=== PATIENT | female | born 1965 | race Caucasian/White ===

== ENCOUNTER 2021-08-13 20:40 | Emergency (ER) | payer OTHER, SELFPAY ==
[2021-08-13] VITALS (15 sets, daily range): BP systolic 130–152; BP diastolic 69–98; PULSE 80–88; RESP 18; TEMP 36.7; O2SAT 96–100
--- NOTE | ~2021-08-13 | CT_ITS ---
EXAMINATION: CT brain wo con DATE: 08/13/2021 22:35 INDICATION: Syncope TECHNIQUE: Computed tomography (CT) of the head was performed without intravenous contrast. Sagittal and coronal reconstructions were performed. The mA was adjusted according to patient size. Iterative reconstruction technique was employed. The dose-length product was 681.00 mGy-cm. COMPARISON: head CT dated 10/02/2009 FINDINGS: No acute intracranial hemorrhage, acute infarction or abnormal extra axial fluid collection. Ventricl es are normal and symmetric. No mass/mass effect. The orbits, paranasal sinuses and mastoid air cells are normal. IMPRESSION: 1. Normal brain. Reviewed, dictated and finalized at location A. IMPRESSION: 1. Normal brain.
[2021-08-13] MEDS: SODIUM CHLORIDE 0.9% IV 1,000 ML 999 ML IV CONT (21:47)
--- NOTE | 2021-08-13 22:04 | ECG_ITS ---
Measurements Intervals [place] Rate: 71 P: 20 WV: 151 QRS: -49 QRSD: 102 T: 0 QT: 371 QTc: 403 Interpretive Statements SINUS RHYTHM LEFT ANTERIOR FASCICULAR BLOCK BORDERLINE T WAVE ABNORMALITY- DIFFUSE LEADS ABNORMAL ECG Electronically Signed On 08-14-2021 6:26:47 CDT by Akash Cortes D.O.
--- NOTE | 2021-08-13 22:11 | ED.ABDPAIN ---
HPI - Abdominal Pain General Chief Complaint: Abdominal Pain Stated Complaint: n/v/d - weakness-unable to sit in a chair Time Seen by Provider: 08/13/21 21:11 Source: patient Mode of arrival: ambulatory Limitations: no limitations History of Present Illness HPI narrative: Patient is a 56-year-old female complaining of nausea accompanied by diarrhea, constant x2 hours. Patient states that she has had nonstop diarrhea for 2 hours causing her to feel very weak and passed out. Patient describes her diarrhea as loose watery, nonbloody. Patient denies any chest pain, shortness of breath, abdominal pain, vomiting, fever or chills. Related Data Home Medications Medication Instructions Recorded Confirmed bupropion HCl 300 mg 24 hr tablet, 300 mg PO QAM 07/18/21 07/18/21 extended release clonazepam 0.5 mg tablet 0.5 mg PO DAILY 07/18/21 07/18/21 esomeprazole magnesium 40 mg 40 mg PO .2-3 X's weekly cap 07/18/21 07/18/21 capsule,delayed release quetiapine 100 mg tablet 100 mg PO QHS 07/18/21 07/18/21 Allergies Allergy/AdvReac Type Severity Reaction Status Date / Time No Known Allergies Allergy Mild Verified 07/18/21 10:56 Review of Systems Review of Systems: All systems reviewed & are unremarkable except as noted in HPI and below Constitutional: Constitutional: Denies body ache(s), Denies chills, Denies excessive sweating, Denies fatigue, Denies fever(s), Denies headache(s), Denies lethargy, Denies malaise, Denies weakness and Denies weight loss Eyes: Eyes: Denies blurry vision, Denies change in vision and Denies loss of vision ENT: Denies dizziness, Denies ear discharge, Denies headache(s), Denies lip swelling, Denies epistaxis, Denies nasal congestion, Denies neck pain, Denies throat swelling and Denies tongue swelling Cardiovascular: Cardiovascular: Denies chest pain, Denies chest pain at rest, Denies chest pain with activity, Denies diaphoresis, Denies rapid heart rate, Denies edema, Denies irregular heart rhythm, Denies lightheadedness, Denies palpitations, Denies dyspnea and Denies dyspnea on exertion Respiratory: Respiratory: Denies chest congestion, Denies cough, Denies hemoptysis, Denies dyspnea and Denies dyspnea on exertion Gastrointestinal: Gastrointestinal: Denies abdominal pain, Denies melena, Denies hematochezia, Denies vomiting and Denies hematemesis Musculoskeletal: Musculoskeletal: Denies abnormal gait, Denies deformity, Denies joint swelling, Denies limited range of motion, Denies neck pain and Denies numbness Neurologic: Denies Abnormal speech present, Denies abnormal gait, Denies confusion, Denies dizziness, Denies headache(s), Denies focal weakness, Denies loss of vision, Denies numbness, Denies Other visual disturbances, Denies Sensory deficit (Neuro) and Denies weakness Psychiatric: Psychiatric: Denies confusion, Denies depression, Denies auditory hallucinations, Denies homicidal ideation and Denies suicidal ideation Endocrine: Endocrine: Denies cold intolerance, Denies excessive sweating, Denies fatigue, Denies heat intolerance and Denies palpitations Hematologic/Lymphatic: Hematologic/Lymphatic: Denies easy bleeding and Denies easy bruising Allergic/Immunologic: Allergic/Immunologic: Denies lip swelling, Denies throat swelling and Denies tongue swelling PMFSH Past Medical History Medical History Anxiety Anxiety and depression Depression Dyslipidemia Family History Family History Mother Family history of malignant neoplasm of urinary bladder Hypertension Father Cerebrovascular accident Other Diabetes mellitus Family history of glaucoma Family history of hypercholesterolemia Social History Social History Smoking status: Former smoker Second hand tobacco smoke exposure: No Smoking end date:
[2021-08-13 22:17] LABS: Basophils Percent Auto 0.4 % (0.2-1.2); Eosinophils Percent Auto 0.6 % (0-4.4); Hematocrit 43.2 % (37.0-47.0); Hemoglobin 14.2 g/dL (12.0-15.0); Immature Granulocyte Absolute 0.01 K/mm3 (0.00-0.031); Immature Granulocyte Percent A 0.1 % (0-0.5); Lymphocytes Absolute Auto 1.41 K/mm3 (0.9-3.2); Lymphocytes Percent Auto 20.8 % (18.3-44.2); Mean Corpuscular HGB Conc 32.9 g/dl (32-36); Mean Corpuscular Hemoglobin 32.4 pg (26-34); Mean Corpuscular Volume 98.6 fl (80-100); Mean Platelet Volume 9.8 fl (7.4-10.4); Monocytes Absolute Auto 0.4 K/mm3 (0.1-0.6); Monocytes Percent Auto 5.3 % (2.6-8.5); Neutrophils Absolute Auto 4.9 K/mm3 (1.3-6.7); Neutrophils Percent Auto 72.8 % (45.5-73.1); Platelet Count Result 238 k/mm3 (150-375); Red Blood Count 4.38 M/mm3 (4.2-5.4); Red Cell Distribution Width 12.7 % (11.5-14.5); White Blood Count 6.8 K/mm3 (4.5-10.0)
[2021-08-13 22:29] LABS: Alanine Aminotransferase 110 U/L (4-35); Albumin Level 4.4 g/dL (3.5-5.1); Alkaline Phosphatase 82 U/L (38-126); Anion Gap 11 mmol/L (8-16); Aspartate Amino Transferase 153 U/L (14-36); Bilirubin,Total 0.8 mg/dL (0.2-1.3); Blood Urea Nitrogen 11 mg/dL (7-17); Calcium 9.1 mg/dL (8.4-10.2); Carbon Dioxide 22 mmol/L (22-30); Chloride 107 mmol/L (98-107); Estimated CRCL calculation 74 ml/min; Estimated Glomerular Filt Rate > 60; Glucose 129 mg/dL (65-110); Lipase 124 U/L (23-300); Potassium 4.2 mmol/L (3.4-5.0); Sodium 140 mmol/L (137-145)
[2021-08-13 22:39] LABS: Troponin I < 0.012 ng/mL (0.000-0.034)
[2021-08-14 01:29] VITALS: BP 113/72; PULSE 77; RESP 18; O2SAT 100
== END 2021-08-14 01:30 | disposition home or self-care (01) ==
PROVIDERS: Emergency Provider Emergency Medicine; PCP Family Medicine
DX: K52.9 Noninfective gastroenteritis and colitis, unspecified (principal); R55 Syncope and collapse; F41.9 Anxiety disorder, unspecified; F32.9 Major depressive disorder, single episode, unspecified; E78.5 Hyperlipidemia, unspecified; Z87.891 Personal history of nicotine dependence; I44.4 Left anterior fascicular block
CPT/HCPCS: 36415; 70450; 80053; 83690; 84484; 85025; 93005; 96360; 99284; J7030

== ENCOUNTER 2023-10-13 08:24 | Emergency (ER) | payer OTHER, SELFPAY ==
--- NOTE | ~2023-10-13 | XR_ITS ---
EXAMINATION: XR hand LT min 3V, XR wrist LT min 3V DATE: 10/13/2023 08:52 INDICATION: Lateral sided left hand and wrist pain post fall TECHNIQUE: 1. Posteroanterior, ulnar deviation, oblique, and lateral views of the left wrist were obtained. 2. Dorsal palmar, oblique and lateral views of the left hand were obtained. COMPARISON: None. FINDINGS: Oblique extra articular fracture extending from the proximal ulnar to the distal radial side of the d iaphysis of the left fifth proximal phalanx. 1.5 mm ulnar displacement and 2 mm proximal migration. N o other fractures identified. Otherwise normal alignment at the left hand and wrist. 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 IMPRESSION: 1. Minimally displaced extra-articular diaphyseal fracture of the left fifth proximal phalanx. Reviewed, dictated and finalized at location A. S LEAD IMPRESSION: 1. Minimally displaced extra-articular diaphyseal fracture of the left fifth pr oximal phalanx.
[2023-10-13 08:30] VITALS: BP 124/79; PULSE 90; RESP 16; TEMP 36.6; O2SAT 96
--- NOTE | 2023-10-13 08:53 | ED.GENADULT ---
HPI - General Adult General Chief complaint: Extremity Injury, Upper Stated complaint: left finger injury Time Seen by Provider: 10/13/23 08:33 History of Present Illness HPI narrative: 58-year-old female presents emergency department for evaluation after having a ground level fall. Patient reports she tripped on her small dog and injured her right knee and her left hand. Patient denies any significant injury or pain to the left knee and pain weight-bearing. Patient does pain of the left hand optimized to the 5th finger. Patient denies Striking her head denies any loss of consciousness. Related Data Home Medications Medication Instructions Recorded Confirmed quetiapine 50 mg tablet 100 mg PO QHS 09/01/21 08/30/23 zaleplon 10 mg capsule 10 mg PO QHS 09/01/21 08/30/23 divalproex 125 mg tablet,delayed 125 mg PO Q8H 08/30/23 08/30/23 release sertraline 100 mg tablet 100 mg PO DAILY 08/30/23 08/30/23 Allergies Allergy/AdvReac Type Severity Reaction Status Date / Time No Known Allergies Allergy Mild Verified 08/30/23 15:02 Review of Systems Review of Systems: All systems reviewed & are unremarkable except as noted in HPI and below PMFSH Past Medical History Medical History Anxiety and depression Dyslipidemia Family History Family History Mother Family history of malignant neoplasm of urinary bladder Hypertension Father Cerebrovascular accident Other Diabetes mellitus Family history of glaucoma Family history of hypercholesterolemia Social History Social History (Updated 08/30/23 @ 15:10 by Es Perez MA) Smoking status: Former smoker Second hand tobacco smoke exposure: No Smoking end date: 11/22/04 Alcohol intake: never Substance use: never Substance use type: does not use Lack of Transportation: No Lack of Food: Sometimes True Current Housing: I Have Housing Concerned About Future Housing: No Difficulty Paying Gas/Electric Bills: YES Difficulty Paying for Meds: No Currently Unemployed: No Education: Master's Degree or Higher Living arrangements: alone Occupation/Education: unemployed Gender identity (if verbalized by the patient): Female Agree to blood products: Yes Exam Narrative: APPEARANCE: Well appearing, no pain, no distress, well-nourished. HEAD: normocephalic, atraumatic. EYES: PERRLA/EOMI, conjunctivae clear. NOSE: Normal no drainage EARS:TMS clear with good light reflex. THROAT: Pharynx clear, no exudate. NECK: Supple. No adenopathy, no masses. RESPIRATORY: Airway patent, respirations nonlabored. Clear to auscultation bilaterally, no rales, rhonchi, wheezing. CARDIOVASCULAR: Regular rate and rhythm without murmurs rubs or gallops. ABDOMINAL: Soft, nontender, nondistended, normal bowel sounds MUSCULOSKELETAL: Tenderness at left finger, normal cap refill NEURO: Alert. Cranial nerves II through XII intact. Good gait. Good coordination SKIN: Warm, dry. Normal Color PSYCHIATRIC: Normal affect/mood. Course Vital Signs Vital signs: Vital Signs Temperature 97.9 F 10/13/23 08:30 Pulse Rate 90 10/13/23 08:30 Respiratory Rate 16 10/13/23 08:30 Blood Pressure 124/79 10/13/23 08:30 Pulse Oximetry 96 10/13/23 08:30 Temperature 97.9 F 10/13/23 08:30 Pulse Rate 90 10/13/23 08:30 Respiratory Rate 16 10/13/23 08:30 Blood Pressure 124/79 10/13/23 08:30 Pulse Oximetry 96 10/13/23 08:30 Medical Decision Making Differential Diagnosis Differential Diagnosis: head injury, head injury, knee injury Vital Signs Vital Signs: Vital Signs Temperature 97.9 F 10/13/23 08:30 Pulse Rate 90 10/13/23 08:30 Respiratory Rate 16 10/13/23 08:30 Blood Pressure 124/79 10/13/23 08:30 Pulse Oximetry 96 10/13/23 08:30 Temperature 97.9 F 09/23
[2023-10-13] MEDS: HYDROcodone/acetaminophen (*CRX) 5-325 MG TABLET 1 TAB PO (09:23)
== END 2023-10-13 09:25 | disposition home or self-care (01) ==
LOC: ANHED 09:06
PROVIDERS: Emergency Provider Emergency Medicine; PCP Family Medicine
DX: S62.617A Displaced fracture of proximal phalanx of left little finger, initial encounter for closed fracture (principal); E78.5 Hyperlipidemia, unspecified; F41.9 Anxiety disorder, unspecified; F32.A Depression, unspecified; Z87.891 Personal history of nicotine dependence; W01.0XXA Fall on same level from slipping, tripping and stumbling without subsequent striking against object, initial encounter
CPT/HCPCS: 29130; 73110; 73130; 99284; A9270

== ENCOUNTER 2023-10-22 03:36 | Day surgery (SDC) | payer OTHER, SELFPAY ==
[2023-10-21 10:36] VITALS: BMI 32.5
--- NOTE | 2023-10-21 10:41 | PC.NURSE ---
Report to the Outpatient Waiting Room, entrance under the green pavilion located off [facility], at time 1230 on date 10/22/23. Planned Procedure Time: 1430. Time changes happen often and if your time is changed the preop area will call you the afternoon before. - You and your visitor will be asked to self-screen and do not enter if you have any COVID symptoms. - A mask is optional within the hospital at this time. Patients may have clear liquids (water, carbonated beverages, clear teas, apple juice) until 8 hours prior to surgery with a maximum of 20 ounces. - No food from midnight until time of surgery Take the following medications with a SIP of water the morning of surgery: LEVOTHYROXINE DO NOT STOP ANY OF YOUR OTHER PRESCRIPTION MEDICATIONS PRIOR TO SURGERY ?EXCEPT THE FOLLOWING Medications to discontinue per physician: N/A Date to take last dose: N/A Please no make-up, nail eritrean, hairspray, perfume, deodorant, or body powder the day of surgery. No jewelry (including any body piercings) or valuables the day of surgery, leave them at home. Please take a shower or bath the night before, or the morning of, surgery with an antibacterial soap. Wear comfortable, loose fitting clothing. - Jewelry must be removed prior to entering the operating room. Rings and piercings that are not removed may be cut off. - The hospital will not accept responsibility for valuables. - Please leave all valuables, including medications, at home the day of surgery. If you are going home after surgery, a licensed vending route driver must drive you home. - NO public transportation without another adult if you receive anesthesia. - We recommend that an adult stay with you for 24 hours following discharge. - We also recommend that you do not drive, make important decision, drink alcoholic beverages, or take any drugs that were not prescribed by your health care provider for at least 24 hours after your discharge time. Follow any additional instructions given to you from your surgeon. If you or anyone in your household have experienced Covid symptoms in the past week, please notify your surgeon or the nurse liaison at the phone number below for possible testing. Telephone instructions given to PT Ignacia JOHNSON and asked if any additional questions and then verbalized understanding. Patient advised to call surgeon office or pre surgery nurse liaison [phone] if any additional questions.
--- NOTE | ~2023-10-22 | XR_ITS ---
XR surgery orthopedic Indication:ORIF left fifth finger fracture TECHNIQUE: Fluoroscopy used during ORIF left fifth finger fracture performed by [Julian li MD] on 10/22/2023. 30 seconds of fluoroscopy. with 2 fluoroscopic images captured. FINDINGS: Correlate with procedure note. IMPRESSION: Fluoroscopy used during ORIF left fifth finger fracture. Status post intraoperative fixat ion of oblique fracture fifth proximal phalanx with 2 K wires. Reviewed, dictated and finalized at location B. GEMENT TECHNICIAN IMPRESSION: Fluoroscopy used during ORIF left fifth finger fracture. Status pos t intraoperative fixation of oblique fracture fifth proximal phalanx with 2 K w ires.
--- NOTE | 2023-10-22 07:01 | WPDHPUPDATE1 ---
History and Physical Update Update Date/Time: 10/22/23 07:01 Patient seen and examined in pre-operative holding area. No interval change in medical history or symptoms. Patient recalls previous discussion of benefits and alternatives to procedure. Continues to desire to proceed with left small finger proximal phalanx closed possible open reduction and pinning . Reviewed procedure, post-op expectations and risks including but not limited to bleeding, infection, injury to tendon/nerve/vessel, decreased hand function, stiffness, RSD, no change or worsening of symptoms, malunion, nonunion. I discussed the possible use of assistants and their participation in the case. Patient stated understanding and signed the consent form wishing to proceed.
--- NOTE | 2023-10-22 07:02 | P.OP_ITS ---
Procedure Note - Detailed Date of Procedure 10/22/23 Pre-op Diagnosis left small finger proximal phalanx fracture Post-op Diagnosis Same Procedure Performed crpp left small finger proximal phalanx Surgeon Julian Fernandez MD Anesthesia MAC Description of Procedure INFORMED CONSENT: The patient was seen and examined and marked in the pre-op area.? The patient signed the consent form. PROCEDURE IN DETAIL:The patient taken back to OR on the stretcher in supine position. Time out performed with anesthesia, surgeon and staff agreeing on patient's name site and surgery to be performed SCDs were placed on the lower extremities and inflated. A tourniquet was placed on {left} upper extremity and antibiotics given IV After anesthesia administered sedation I injected {4}cc 1%lido and 0.5% marcaine plain for digital block in the palm The?{left upper extremity}?was prepped and draped in sterile fashion the??{left upper extremity} was? exsanguinated with Esmarch bandage and tourniquet inflated to 250mmHg The mini c-arm was draped and brought into the field. I verified fracture location and proceeded with closed reduction maneuvers noting ability to adequately reduce the fracture. I proceeded with placing an0.045 k-wire in retrograde fashion and a subsequent 0.035 k-wire across the fracture. Muli tple views of fluoro were taken noting maintenance of reduction and proper pin placement. The pins were trimmed and dressed with chlorhexidine swab. A dressing of 4x4, taqueria, ulnar gutter splint and ellen was applied after the tourniguet was let down noting the finger was warm and well perfused. The patient was then awaken from anesthesia and transferred to the recovery room in stable condition.? Complications - none EBL- 0cc Disposition - home in stable conditions [facility] Billing Surgery - Charge Forward: Surgery Billing ([id number])
[2023-10-22 11:43] VITALS: BP 124/69; PULSE 95; RESP 18; TEMP 36.1; O2SAT 96
[2023-10-22] MEDS: LACTATED RINGERS 1,000 ML 30 ML IV CONT (11:50)
--- NOTE | 2023-10-22 12:02 | WPDANESEPPF ---
Anes - Initial Pre Proc Eval Procedure: Operation Date: 10/22/23 14:30 Proposed Procedures p Closed, Possible Open Reduction and Pinning Left Small Finger Proximal Phalanx Fracture - Julian Fernandez MD Date/Time: 10/22/23 12:02 Surgeon: Julian Fernandez MD Pre Op Diagnosis: fx left phalanx Patient Data Age: 58 Gender: F Height: 1.75 m Weight: 99.8 kg Last Vital Signs Temp 36.1 C L 10/22/23 11:43 Pulse 95 10/22/23 11:43 Resp 18 10/22/23 11:43 BP 124/69 10/22/23 11:43 Pulse Ox 96 10/22/23 11:43 O2 Del Method Room Air 10/22/23 11:43 Allergies Allergy/AdvReac Type Severity Reaction Status Date / Time No Known Allergies Allergy Mild Verified 10/22/23 11:50 Home Medications Medication Instructions Recorded Confirmed Type quetiapine 50 mg tablet 100 mg PO QHS 09/01/21 10/22/23 History zaleplon 10 mg capsule 10 mg PO QHS 09/01/21 10/22/23 History atorvastatin 20 mg tablet 20 mg PO DAILY #90 tabs 08/30/23 10/22/23 Rx cholecalciferol (vitamin D3) 1,250 1,250 mcg PO WEEKLY #12 tabs 08/30/23 10/22/23 Rx mcg (50,000 unit) tablet divalproex 125 mg tablet,delayed 125 mg PO HS 08/30/23 10/22/23 History release levothyroxine 88 mcg tablet 88 mcg PO DAILY #90 tabs 08/30/23 10/22/23 Rx sertraline 100 mg tablet 100 mg PO HS 08/30/23 10/22/23 History Patient hx anesthesia problems: post op nausea/vomiting Family hx anesthesia problems: none Results Review: All pre-operative results and documents have been reviewed as part of the pre-operative evaluation. [facility] Past Medical History Medical History Anxiety and depression Dyslipidemia Family History Family History Mother Family history of malignant neoplasm of urinary bladder Hypertension Father Cerebrovascular accident Other Diabetes mellitus Family history of glaucoma Family history of hypercholesterolemia Social History Social History Smoking packs per day: 0.75 Smoking cigarettes per day: 15.0 Years smoked: 25 Smoking pack-years: 18.75 Smoking status: Former smoker Tobacco type: cigarettes Second hand tobacco smoke exposure: No Smoking end date: 11/22/15 Alcohol intake: never Substance use: never Substance use type: does not use Lack of Transportation: No Lack of Food: Sometimes True Current Housing: I Have Housing Concerned About Future Housing: No Difficulty Paying Gas/Electric Bills: YES Difficulty Paying for Meds: No Currently Unemployed: No Education: Master's Degree or Higher Living arrangements: alone Occupation/Education: unemployed Gender identity (if verbalized by the patient): Female Spiritual care concerns: No Agree to blood products: Yes Anes - Eval Final PreProcedure Day of Procedure 10/22/23 12:02 Patient weight: obese Heart: regular rate and rhythm Lungs: clear to auscultation Airway: Mallampati scale class II Neurological: alert and oriented Last oral intake: >/= 8 hours ASA classification: III Emergent: no Anesthetic plan: proceed Anesthesia type and monitoring: general LMA and standard monitoring Results Review: All pre-operative results and documents have been reviewed as part of the pre-operative evaluation. Informed Consent: The patient's anesthetic plan and its attendant risks and benefits were discussed with the patient/family/POA. Questions were solicited and answers provided to the satisfaction of the patient/family/POA.
[2023-10-22] MEDS: ceFAZolin 2 GM/D5W 50 ML 2 GM/50 ML BAG IVPB (12:26)
[2023-10-22] MEDS: SCOPOLAMINE 1.5 MG PATCH TRANSDERM (12:48)
[2023-10-22] MEDS: LIDO 1%/EPINEPHRINE 1:100,000 50 ML VIAL INFILTRATE (12:52)
[2023-10-22] MEDS: BUPivacaine HCL 0.5% PF 30 ML VIAL 5 ML INFILTRATE (12:53)
[2023-10-22 13:07] VITALS: BP 110/69; PULSE 94; RESP 10; O2SAT 92
[2023-10-22 13:31] VITALS: BP 108/67; PULSE 70; RESP 16
[2023-10-22 14:07] VITALS: BP 104/58; PULSE 64; RESP 16
== END 2023-10-22 14:18 | disposition home or self-care (01) ==
PROVIDERS: PCP Family Medicine; Visit Provider Plastic Surgery
PROC: (CPT 26727; principal; 2023-10-22 14:30)
DX: S62.617A Displaced fracture of proximal phalanx of left little finger, initial encounter for closed fracture (principal); W01.0XXA Fall on same level from slipping, tripping and stumbling without subsequent striking against object, initial encounter; E78.5 Hyperlipidemia, unspecified
CPT/HCPCS: 26727; 99199; A9270; C1713; J0690; J1100; J2250; J2405; J2704; J3010; J7120

== ENCOUNTER 2023-11-08 14:20 | Outpatient (CLI) | payer OTHER, SELFPAY ==
--- NOTE | ~2023-11-08 | XR_ITS ---
EXAMINATION: XR hand LT 2V INDICATION: Displaced fracture of the fifth proximal phalanx. TECHNIQUE: Two views of the left hand are obtained on three radiographs. COMPARISON: 10/13/2023 FINDINGS: There has been interval percutaneous pinning of the previously described oblique shaft frac ture of the fifth proximal phalanx. Alignment has improved and is near-anatomic. A splint has been ap plied. No additional fracture is identified. Calcified callus is not definitely appreciated through t he splint. IMPRESSION: 1. Interval percutaneous pinning and splinting of the previously described fifth proximal phalanx fra cture in near-anatomic alignment. Reviewed, dictated and finalized at location B. T METAL OPERATOR IMPRESSION: 1. Interval percutaneous pinning and splinting of the previously described fift h proximal phalanx fracture in near-anatomic alignment.
== END 2023-11-08 14:21 | disposition home or self-care (01) ==
PROVIDERS: PCP Family Medicine; Visit Provider Physician Assistant Surgical
DX: S62.615A Displaced fracture of proximal phalanx of left ring finger, initial encounter for closed fracture (principal); X58.XXXA Exposure to other specified factors, initial encounter
CPT/HCPCS: 73120

== ENCOUNTER 2023-12-08 16:41 | Outpatient (CLI) | payer OTHER, SELFPAY ==
--- NOTE | ~2023-12-08 | XR_ITS ---
EXAMINATION: XR finger 5th LT min 2V DATE: 12/08/2023 17:00 INDICATION: Follow-up displaced fracture of the left fifth proximal phalanx TECHNIQUE: Dorsal palmar, lateral and 2 oblique views of the left fifth digit were obtained COMPARISON: 11/08/2023 FINDINGS: Interval removal of the prior percutaneous fixation pins spanning an oblique diaphyseal fractures of the left fifth proximal phalanx. No retained metallic foreign bodies. There appears be solid bridging across portions of the fracture although there is still some early discernible lucency along the fra cture plane. Alignment is unchanged with one cortical width dorsal and ulnar displacement and negligi ble dorsal/ulnar angulation. No other fractures identified. Minimal to mild polyarticular osteoarthri tis at the radial aspect of the carpus and at a few of the profiled interphalangeal joints. There is residual mild soft tissue swelling about the proximal aspect of the fifth digit. IMPRESSION: 1. Removal of fixation pins and interval healing of an extra articular fracture of the left fifth pro ximal phalangeal diaphysis which remains in near-anatomic alignment. Reviewed, dictated and finalized at location A. UCT DESIGNER IMPRESSION: 1. Removal of fixation pins and interval healing of an extra articular fracture of the left fifth proximal phalangeal diaphysis which remains in near-anatomic alignment.
== END 2023-12-08 16:42 | disposition home or self-care (01) ==
LOC: ANHIMG 16:42
PROVIDERS: PCP Family Medicine; Visit Provider Physician Assistant Surgical
DX: S62.619D Displaced fracture of proximal phalanx of unspecified finger, subsequent encounter for fracture with routine healing (principal); X58.XXXD Exposure to other specified factors, subsequent encounter
CPT/HCPCS: 73140

== ENCOUNTER 2023-12-28 07:18 | Outpatient (RCR) | payer OTHER, SELFPAY ==
--- NOTE | 2023-12-28 08:39 | OTOPEVAL1 ---
Assessment and note entered by Mitchell Pineda, [place]/Kemal, CHT Evaluation Information Assessment Status Evaluation Diagnosis Displaced fracture of proximal phalanx of left small finger Subjective Information s/p CRPP 10/22/23, pin removal 12/08/23 Patient is right handed. Reporting residual stiffness of the left small finger, unable to touch her finger to the palm. Reported Pain Level Additional Pain Score Comments No pain at rest. 3/10 with ROM. Assessment OT Clinical Summary Patient referred to OT s/p left small finger proximal phalanx fracture. She underwent CRPP and pin removal. 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 Skilled OT indicated to maximize functional flexibility and strength of the left hand/small finger via HEP instruction/progression, modalities, manual therapy, and therapeutic exercise. Plan of Care Interventions Therapeutic Exercise,Manual Therapy,Therapeutic Activities,Hot Pack/Cold Pack,Paraffin OT Services Indicated Yes Treatment Frequency and 1x/week for 5 visits Duration These treatments will address the objective and functional deficits as defined above. The patient will be advanced safely and appropriately in order for the patient to progress towards his/her prior level of function. Additional exercises will be introduced and as well as a comprehensive home exercise program upon discharge, if needed, ?to ensure carryover of functional gains achieved in the clinic. This treatment plan has been reviewed and agreement upon by the patient.
--- NOTE | 2024-01-12 15:34 | PCOTNOTE ---
Patient did not show up for scheduled appointment this date. Called patient to inform her of missed appt. Left voicemail.
--- NOTE | 2024-01-19 08:07 | PCOTNOTE ---
Patient called & cancelled scheduled appointment this date due to illness.
--- NOTE | 2024-01-28 14:39 | OTOPDC ---
Assessment and note entered by Mitchell Pineda, OTVanesa/Kemal, CHT Discharge Notification 01/28/24 OT Clinical Summary Patient referred to OT s/p left small finger proximal phalanx fracture. She underwent CRPP and pin removal. She attended the initial evaluation on 12/28/23 and has not followed up since. At the evaluation she was instructed in ROM HEP. Discharging due to poor attendance.
== END 2024-01-28 14:52 | disposition home or self-care (01) ==
LOC: ANHOT 07:18
PROVIDERS: PCP Family Medicine; Visit Provider Physician Assistant Surgical
DX: S62.619D Displaced fracture of proximal phalanx of unspecified finger, subsequent encounter for fracture with routine healing (principal)
CPT/HCPCS: 97018; 97110; 97165; 99199

== ENCOUNTER 2024-05-29 14:41 | Outpatient (CLI) | payer OTHER, SELFPAY ==
--- NOTE | ~2024-05-29 | XR_ITS ---
EXAMINATION: XR chest 2V 05/29/2024 14:58 INDICATION: Personal history of nicotine dependence PROCEDURE: 2 view chest COMPARISON: 06/01/2013 FINDINGS: The lungs are clear. The cardiomediastinal silhouette is within normal limits. There are no pleural effusions. There is no pneumothorax suspected. IMPRESSION: 1: NO ACUTE CARDIOPULMONARY DISEASE. Reviewed, dictated and finalized at location B.
== END 2024-05-29 14:42 ==
PROVIDERS: PCP Family Medicine; Visit Provider Nurse Practitioner Family
DX: E03.9 Hypothyroidism, unspecified (principal); E55.9 Vitamin D deficiency, unspecified; E78.5 Hyperlipidemia, unspecified; R00.0 Tachycardia, unspecified; R06.02 Shortness of breath; R61 Generalized hyperhidrosis; R63.4 Abnormal weight loss; Z87.891 Personal history of nicotine dependence
CPT/HCPCS: 71046

== ENCOUNTER 2024-05-29 15:03 | Outpatient (CLI) | payer OTHER, SELFPAY ==
[2024-05-29 18:47] LABS: Basophils Percent Auto 0.5 % (0.2-1.2); Eosinophils Absolute Auto 0.1 K/mm3 (0-0.3); Eosinophils Percent Auto 1.4 % (0-4.4); Hematocrit 45.2 % (37.0-47.0); Hemoglobin 14.8 g/dL (12.0-15.0); Immature Granulocyte Absolute 0.01 K/mm3 (0.00-0.031); Immature Granulocyte Percent A 0.1 % (0-0.5); Lymphocytes Absolute Auto 3.61 K/mm3 (0.9-3.2); Lymphocytes Percent Auto 49.6 % (18.3-44.2); Mean Corpuscular HGB Conc 32.7 g/dl (32-36); Mean Corpuscular Volume 97.8 fl (80-100); Mean Platelet Volume 10.8 fl (7.4-10.4); Monocytes Absolute Auto 0.4 K/mm3 (0.1-0.6); Monocytes Percent Auto 5.6 % (2.6-8.5); Neutrophils Absolute Auto 3.1 K/mm3 (1.3-6.7); Neutrophils Percent Auto 42.8 % (45.5-73.1); Platelet Count Result 236 k/mm3 (150-375); Red Blood Count 4.62 M/mm3 (4.2-5.4); Red Cell Distribution Width 13.7 % (11.5-14.5); White Blood Count 7.3 K/mm3 (4.5-10.0)
[2024-05-29 19:34] LABS: Vitamin D 25 Hydroxy 40.4 ng/mL
[2024-05-29 19:35] LABS: Alanine Aminotransferase 60 U/L (6-35); Albumin Level 4.6 g/dL (3.5-5.1); Alkaline Phosphatase 67 U/L (38-126); Anion Gap 12 mmol/L (4-12); Aspartate Amino Transferase 96 U/L (14-36); Blood Urea Nitrogen 13 mg/dL (7-17); Calcium 9.6 mg/dL (8.4-10.2); Carbon Dioxide 26 mmol/L (22-30); Chloride 104 mmol/L (98-107); Estimated Glomerular Filt Rate > 60; Glucose 119 mg/dL (65-110); Potassium 4.4 mmol/L (3.4-5.0); Sodium 142 mmol/L (137-145); T4 Thyroxine 7.56 ug/dL (5.53-11.0)
[2024-05-29 23:18] LABS: Free T4 Free Thyroxine Reflex 0.96 ng/dL (0.78-2.19)
[2024-05-30 00:03] LABS: Total Triiodothyronine (T3) 1.14 NG/ML (0.97-1.69)
== END 2024-05-29 15:04 | disposition home or self-care (01) ==
LOC: ANHGOSHLAB 15:05
PROVIDERS: PCP Family Medicine; Visit Provider Nurse Practitioner Family
DX: E53.8 Deficiency of other specified B group vitamins (principal); E03.9 Hypothyroidism, unspecified; E55.9 Vitamin D deficiency, unspecified; E78.5 Hyperlipidemia, unspecified; R00.0 Tachycardia, unspecified; R06.02 Shortness of breath; R61 Generalized hyperhidrosis; R63.4 Abnormal weight loss
CPT/HCPCS: 36415; 80053; 82306; 82607; 84436; 84439; 84443; 84480; 85025

== ENCOUNTER 2024-06-13 11:17 | Emergency (ER) | payer OTHER, SELFPAY ==
[2024-06-13] VITALS (29 sets, daily range): BP systolic 113–139; BP diastolic 65–82; PULSE 73–100; RESP 10–21; TEMP 36.6; O2SAT 93–100
--- NOTE | ~2024-06-13 | CT_ITS ---
EXAMINATION: CT diagnostic chest w con DATE: 06/13/2024 14:09 INDICATION: Cough for 4 months TECHNIQUE: Computed tomography (CT) of the chest was performed without intravenous contrast. The dose -length product was 165.77 mGy-cm. Automated exposure control and iterative reconstruction technique were employed. COMPARISON: None FINDINGS: There is a 2.3 cm hypovascular liver lesion of the right hepatic lobe, not well characteriz ed. No significant pleural or pericardial effusion. No thoracic lymphadenopathy. Fatty infiltration o f the liver. No significant vascular abnormality. No endobronchial lesions. Dependent atelectasis. No focal airspace consolidation. IMPRESSION: 1. No acute cardiopulmonary disease. 2: Incompletely visualized 2.3 cm hypovascular lesion of the liver. In the absence of known malignanc y this is likely benign, although further evaluation with CT abdomen and pelvis with contrast recomme nded. Reviewed, dictated and finalized at location B. IMPRESSION: 1. No acute cardiopulmonary disease. 2: Incompletely visualized 2.3 cm hypovascular lesion of the liver. In the abse nce of known malignancy this is likely benign, although further evaluation with CT abdomen and pelvis with contrast recommended.
--- NOTE | ~2024-06-13 | CT_ITS ---
EXAMINATION: CT brain wo con DATE: 06/13/2024 14:09 INDICATION: Progressive muscular weakness TECHNIQUE: Computed tomography (CT) of the head was performed without intravenous contrast. The dose- length product was 165.77 mGy-cm. Automated exposure control and iterative reconstruction technique w ere employed. COMPARISON: CT dated 08/13/2021 FINDINGS: Small calcified extra-axial mass measuringr 9 mm, left frontal location, consistent with me ningioma. No significant mass effect. No ventriculomegaly or midline shift. Basilar cisterns are birch nt. Paranasal sinuses and mastoids are pneumatized. No acute intracranial hemorrhage, infarction, mas s or mass effect. Paranasal sinuses and mastoids are pneumatized. IMPRESSION: 1. No acute intracranial abnormality. 2: Small 9 mm calcified extra-axial mass left frontal lobe, consistent with meningioma. Reviewed, dictated and finalized at location B. IMPRESSION: 1. No acute intracranial abnormality. 2: Small 9 mm calcified extra-axial mass left frontal lobe, consistent with men ingioma.
--- NOTE | 2024-06-13 13:20 | ED.WEAKNESS ---
HPI - Weakness General Chief complaint: Weakness <Fabiola Rivera MD - Last Filed: 06/13/24 22:29> Stated complaint: weakness <Fabiola Rivera MD - Last Filed: 06/13/24 22:29> Time Seen by Provider: 06/13/24 12:03 <Fabiola Rivera MD - Last Filed: 06/13/24 22:29> History of Present Illness HPI Narrative: Patient is a 59-year-old female with history of hypothyroidism, hyperlipidemia presenting with weakness. Patient states that for the last month she has had progressively worsening proximal muscle weakness. States that she has tightness and some pain in her thighs and into her hips. For the last 2 weeks she has been able to stand for only 2 minutes until she needs to lay back down due to weakness and feeling she is about to collapse. States that she has also had some weakness in her arms and mild pain in her shoulders. States that she has also had a dry cough for about 4 months and has lost approximately 40 lb unintentionally. Decreased appetite but no nausea vomiting, chest pain, shortness of breath, abdominal pain. Denies difficulty swallowing but states that she has had several episodes of ?head drop?. States that her headache had dropped to her chest and she struggles to lift a backup. <Fabiola Rivera MD - Last Filed: 06/13/24 22:29> Related Data Home medications: Home Medications Medication Instructions Recorded Confirmed zaleplon 10 mg capsule 10 mg PO QHS 09/01/21 10/22/23 divalproex 125 mg tablet,delayed 125 mg PO HS 08/30/23 10/22/23 release sertraline 100 mg tablet 100 mg PO HS 08/30/23 10/22/23 <Fabiola Rivera MD - Last Filed: 06/13/24 22:29> Allergies/Adverse reactions: Allergies Allergy/AdvReac Type Severity Reaction Status Date / Time No Known Allergies Allergy Mild Verified 06/13/24 11:23 <Fabiola Rivera MD - Last Filed: 06/13/24 22:29> Review of Systems Review of Systems: All systems reviewed & are unremarkable except as noted in HPI and below <Fabiola Rivera MD - Last Filed: 06/13/24 22:29> [facility] Past Medical History Medical History: Medical History Anxiety and depression Dyslipidemia Former smoker Night sweats SOB (shortness of breath) on exertion Weight loss, non-intentional <Fabiola Rivera MD - Last Filed: 06/13/24 22:29> Family History Family History: Family History Mother Family history of malignant neoplasm of urinary bladder Hypertension Father Cerebrovascular accident Other Diabetes mellitus Family history of glaucoma Family history of hypercholesterolemia <Fabiola iRvera MD - Last Filed: 06/13/24 22:29> Social History Social History: Social History Smoking packs per day: 0.75 Smoking cigarettes per day: 15.0 Years smoked: 25 Smoking pack-years: 18.75 Smoking status: Former smoker Tobacco type: cigarettes Second hand tobacco smoke exposure: No Smoking end date: 11/22/15 Alcohol intake: never Substance use: never Substance use type: does not use Lack of Transportation: No Lack of Food: Sometimes True Current Housing: I Have Housing Concerned About Future Housing: No Difficulty Paying Gas/Electric Bills: YES Difficulty Paying for Meds: No Currently Unemployed: No Education: Master's Degree or Higher Living arrangements: alone Occupation/Education: unemployed Gender identity (if verbalized by the patient): Female Spiritual care concerns: No Agree to blood products: Yes <Fabiola Rivera MD - Last Filed: 06/13/24 22:29> Exam Narrative: GENERAL: Nontoxic, no acute distress, pleasant cooperative HEAD: Normocephalic, atraumatic. EYES: PERRLA and EOMI. ENT: Mucous membranes moist. NECK: Supple. CHES
[2024-06-13] MEDS: SODIUM CHLORIDE 0.9% IV 1,000 ML 999 ML IV CONT (13:34)
[2024-06-13 13:39] LABS: Basophils Percent Auto 0.3 % (0.2-1.2); Eosinophils Absolute Auto 0.1 K/mm3 (0-0.3); Eosinophils Percent Auto 0.9 % (0-4.4); Hematocrit 42.3 % (37.0-47.0); Hemoglobin 13.7 g/dL (12.0-15.0); Immature Granulocyte Absolute 0.01 K/mm3 (0.00-0.031); Immature Granulocyte Percent A 0.1 % (0-0.5); Lymphocytes Absolute Auto 2.71 K/mm3 (0.9-3.2); Lymphocytes Percent Auto 40.2 % (18.3-44.2); Mean Corpuscular HGB Conc 32.4 g/dl (32-36); Mean Corpuscular Hemoglobin 31.4 pg (26-34); Mean Platelet Volume 10.1 fl (7.4-10.4); Monocytes Absolute Auto 0.5 K/mm3 (0.1-0.6); Monocytes Percent Auto 6.7 % (2.6-8.5); Neutrophils Absolute Auto 3.5 K/mm3 (1.3-6.7); Neutrophils Percent Auto 51.8 % (45.5-73.1); Platelet Count Result 142 k/mm3 (150-375); Red Blood Count 4.36 M/mm3 (4.2-5.4); Red Cell Distribution Width 13.2 % (11.5-14.5); White Blood Count 6.7 K/mm3 (4.5-10.0)
[2024-06-13 13:53] LABS: Alanine Aminotransferase 103 U/L (6-35); Albumin Level 4.1 g/dL (3.5-5.1); Alkaline Phosphatase 58 U/L (38-126); Anion Gap 8 mmol/L (4-12); Aspartate Amino Transferase 197 U/L (14-36); Blood Urea Nitrogen 12 mg/dL (7-17); Calcium 9.5 mg/dL (8.4-10.2); Carbon Dioxide 30 mmol/L (22-30); Chloride 101 mmol/L (98-107); Creatine Kinase 885 U/L (30-135); Estimated CRCL calculation 90 ml/min; Estimated Glomerular Filt Rate > 60; Glucose 102 mg/dL (65-110); Lipase 99 U/L (23-300); Magnesium 1.7 mg/dL (1.6-2.3); Sodium 139 mmol/L (137-145)
[2024-06-13 14:02] LABS: NT Pro B Type Natriuretic Pept 27 pg/mL (19.9-100)
[2024-06-13 15:18] LABS: Appearance Urine Clear (Clear); Bilirubin Urine Negative (Negative); Blood Urine Negative (Negative); Color Urine Yellow (Yellow); Glucose Urine UA Negative (Negative); Ketones Urine Negative (Negative); Leukocyte Esterase Ur Negative LEU/UL (Negative); Nitrate Urine Negative (Negative); Protein Urine Negative (Negative); Specific Grav Ur > 1.045 (1.001-1.035); Urobilinogen Urine 0.2 mg/dL (<2.0)
[2024-06-13 15:19] LABS: Add Urine Microscopic? NO
[2024-06-14 01:41] VITALS: BP 121/87; PULSE 76; RESP 18; O2SAT 100
[2024-06-14] MEDS: ACETAMINOPHEN 500 MG TABLET 1000 MG PO ×2 (03:44→20:05)
[2024-06-14 05:18] VITALS: BP 125/83; PULSE 80; RESP 18; O2SAT 99
[2024-06-14 07:07] VITALS: BP 120/78; PULSE 80; RESP 16; TEMP 36.4; O2SAT 100
[2024-06-14 10:00] VITALS: BP 124/78; PULSE 74; RESP 16; TEMP 36.8; O2SAT 100
--- NOTE | 2024-06-14 11:05 | PC.NURSE ---
[facility] called for update, no beds at this time.
[2024-06-14] MEDS: ACETAMINOPHEN 325 MG TABLET 650 MG PO (11:15)
--- NOTE | 2024-06-14 11:31 | PC.NURSE ---
Lunch and dinner tray ordered at this time
--- NOTE | 2024-06-14 15:35 | PC.NURSE ---
Francia from [facility] patient transfer called for patient update. states that they are at capacity and no beds are available. They will continue to call with patient updates and when they have a bed
[2024-06-14 15:52] VITALS: BP 110/67; PULSE 74; RESP 17; TEMP 36.3; O2SAT 98
--- NOTE | 2024-06-14 21:45 | PC.NURSE ---
spoke with Ellyn at [facility] transfer center. gave patient update along with current set of vital signs. they state that they will be calling with any updates to bed availability and will call for updates once per shift.
--- NOTE | 2024-06-14 23:23 | PC.NURSE ---
Assumed care of pt after taking report from MELONIE Huynh.
[2024-06-15] MEDS: ACETAMINOPHEN 500 MG TABLET 1000 MG PO (04:03)
[2024-06-15 04:05] VITALS: BP 135/75; PULSE 78; RESP 17; O2SAT 97
--- NOTE | 2024-06-15 06:21 | PC.NURSE ---
Tabatha with [facility] called for an update on pt and stated that they are still at capacity but will inform us of any changes.
--- NOTE | 2024-06-15 07:08 | PC.NURSE ---
Report given to MELONIE Santa
[2024-06-15 08:29] VITALS: BP 144/75; PULSE 81; RESP 16; O2SAT 98
--- NOTE | 2024-06-15 08:37 | PC.NURSE ---
pt in room, eating breakfast. no needs at this time VS WNL introduced self to pt as oncoming rn still awaiting transfer to [facility]
[2024-06-15 08:59] LABS: Basophils Percent Auto 0.4 % (0.2-1.2); Eosinophils Absolute Auto 0.1 K/mm3 (0-0.3); Eosinophils Percent Auto 1.4 % (0-4.4); Hematocrit 39.6 % (37.0-47.0); Hemoglobin 12.9 g/dL (12.0-15.0); Immature Granulocyte Absolute 0.01 K/mm3 (0.00-0.031); Immature Granulocyte Percent A 0.2 % (0-0.5); Lymphocytes Absolute Auto 2.48 K/mm3 (0.9-3.2); Lymphocytes Percent Auto 49.6 % (18.3-44.2); Mean Corpuscular HGB Conc 32.6 g/dl (32-36); Mean Corpuscular Hemoglobin 31.9 pg (26-34); Mean Corpuscular Volume 97.8 fl (80-100); Mean Platelet Volume 10.1 fl (7.4-10.4); Monocytes Absolute Auto 0.3 K/mm3 (0.1-0.6); Monocytes Percent Auto 6.8 % (2.6-8.5); Neutrophils Absolute Auto 2.1 K/mm3 (1.3-6.7); Neutrophils Percent Auto 41.6 % (45.5-73.1); Platelet Count Result 129 k/mm3 (150-375); Red Blood Count 4.05 M/mm3 (4.2-5.4); Red Cell Distribution Width 13.2 % (11.5-14.5)
[2024-06-15 09:13] LABS: Alanine Aminotransferase 92 U/L (6-35); Albumin Level 3.9 g/dL (3.5-5.1); Alkaline Phosphatase 48 U/L (38-126); Anion Gap 9 mmol/L (4-12); Aspartate Amino Transferase 174 U/L (14-36); Bilirubin,Total 0.7 mg/dL (0.2-1.3); Blood Urea Nitrogen 10 mg/dL (7-17); Calcium 9.3 mg/dL (8.4-10.2); Carbon Dioxide 29 mmol/L (22-30); Chloride 102 mmol/L (98-107); Creatine Kinase 989 U/L (30-135); Estimated CRCL calculation 90 ml/min; Estimated Glomerular Filt Rate > 60; Glucose 131 mg/dL (65-110); Magnesium 1.7 mg/dL (1.6-2.3); Potassium 3.9 mmol/L (3.4-5.0); Sodium 140 mmol/L (137-145)
[2024-06-15] MEDS: ACETAMINOPHEN 325 MG TABLET 650 MG PO (12:40)
[2024-06-15 13:10] VITALS: BP 128/84; PULSE 87; RESP 16; O2SAT 98
--- NOTE | 2024-06-15 13:53 | PC.NURSE ---
still no updated on bed at [facility] Lunch to pt in room. no needs at this time
--- NOTE | 2024-06-15 13:53 | PC.NURSE ---
verbalized small changes in new labs with Dr Lawson MOSES
== END 2024-06-15 18:00 | disposition short-term general hospital (02) ==
PROVIDERS: Emergency Provider Emergency Medicine; PCP Family Medicine
DX: M62.81 Muscle weakness (generalized) (principal); R16.0 Hepatomegaly, not elsewhere classified; R63.4 Abnormal weight loss; Z68.28 Body mass index [BMI] 28.0-28.9, adult; E03.9 Hypothyroidism, unspecified; F41.8 Other specified anxiety disorders; Z87.891 Personal history of nicotine dependence
CPT/HCPCS: 36415; 70450; 71260; 80053; 81003; 82550; 83690; 83735; 83880; 84443; 85025; 96360; 99285; A9270; J7030; Q9967

== ENCOUNTER 2024-07-12 11:45 | Outpatient (NON) | payer OTHER, SELFPAY ==
[2024-07-12 13:25] LABS: Creatine Kinase 914 U/L (30-135)
[2024-07-14 13:33] LABS: Aldolase 9.8 U/L (< OR = 8.1)
== END 2024-07-12 11:46 | disposition home or self-care (01) ==
PROVIDERS: PCP Family Medicine
DX: M53.82 Other specified dorsopathies, cervical region (principal); F41.9 Anxiety disorder, unspecified; F32.9 Major depressive disorder, single episode, unspecified; M62.81 Muscle weakness (generalized)
CPT/HCPCS: 82085; 82550